=== PATIENT | male | born 1955 | race Native Hawaiian/Other Pacific Islander ===

== ENCOUNTER 2019-10-12 11:32 | Inpatient (IN) | payer SELFPAY ==
--- NOTE | 2019-10-12 12:08 | Emergency Department Report ---
Blank Doc - Documentation Documentation: 63-year-old male that presents with chest pain and describes it as tightness. This initial assessment/diagnostic orders/clinical plan/treatment(s) is/are subject to change based on patient's health status, clinical progression and re- assessment by fellow clinical providers in the ED. Further treatment and workup at subsequent clinical providers discretion. Patient/guardians urged not to elope from the ED as their condition may be serious if not clinically assessed and managed. Initial orders include: 1- Patient sent to [facility] for further evaluation and treatment 2- labs 3- EKG 4- CXR
[2019-10-12] MEDS ORDERED: ASPIRIN 81 MG TAB CHEW PO ONE (12:47)
--- NOTE | 2019-10-12 12:47 | Emergency Department Report ---
ED Chest Pain HPI - General Chief Complaint: Chest Pain Stated Complaint: CHEST PAIN Time Seen by Provider: 10/12/19 12:07 Source: patient Mode of arrival: Ambulatory Limitations: No Limitations - History of Present Illness Initial Comments: Patient is 63 years old male with history of hypertension and diabetes. Patient presented to the ER complaining of left sided chest pain, tightness with radiation to the left arm, neck and jaw. She stated that pain started last night continue for a few minutes and it went away. He stated that pain occurred today also for a few minutes and resolved. Patient currently does not have any chest pain and he is complaining of mild shortness of breath. Patient denied any history of cardiac problem before. No fever, chills or cough. MD Complaint: chest pain -: Last night, This morning Onset: during rest Pain Location: left chest Pain Radiation: neck, jaw/teeth Severity: moderate Severity scale (0 -10): 0 Quality: tightness Consistency: intermittent, now resolved - Related Data Allergies Allergy/AdvReac Type Severity Reaction Status Date / Time No Known Allergies Allergy Unverified 10/12/19 11:43 Heart Score - HEART Score History: Moderately suspicious EKG: Non-specific Age: 45-65 Risk factors: > 3 risk factors or hx of atherosclerotic disease Troponin: < normal limit HEART Score: 5 - Critical Actions Critical Actions: 4-6 pts:12-16.6% risk of adverse cardiac event. Should be admitted ED Review of Systems ROS: Stated complaint: CHEST PAIN Other details as noted in HPI Comment: All other systems reviewed and negative Constitutional: denies: chills, fever Respiratory: shortness of breath. denies: cough, orthopnea, SOB with exertion, SOB at rest, wheezing Cardiovascular: chest pain. denies: palpitations, dyspnea on exertion Gastrointestinal: denies: abdominal pain, nausea, vomiting Musculoskeletal: denies: back pain Neurological: denies: headache, weakness, numbness, paresthesias, confusion, abnormal gait ED Past Medical Hx - Past Medical History Previous Medical History?: Yes Hx Hypertension: Yes Hx Dementia: Yes - Surgical History Past Surgical History?: No - Social History Smoking Status: Never Smoker Substance Use Type: None ED Physical Exam - General Limitations: No Limitations General appearance: alert, in no apparent distress - Head Head exam: Present: atraumatic, normocephalic, normal inspection - Eye Eye exam: Present: normal appearance - ENT ENT exam: Present: normal exam, normal orophraynx, mucous membranes moist - Neck Neck exam: Present: normal inspection, full ROM. Absent: tenderness, meningismus, lymphadenopathy, thyromegaly - Respiratory Respiratory exam: Present: normal lung sounds bilaterally - Cardiovascular Cardiovascular Exam: Present: regular rate, normal rhythm, normal heart sounds - GI/Abdominal GI/Abdominal exam: Present: soft, normal bowel sounds. Absent: distended, tenderness, guarding, rebound, rigid, organomegaly, mass, bruit, pulsatile mass, hernia - Extremities Exam Extremities exam: Present: normal inspection, full ROM, normal capillary refill. Absent: tenderness, pedal edema, joint swelling, calf tenderness - Back Exam Back exam: Present: normal inspection, full ROM. Absent: CVA tenderness (R), CVA tenderness (L), muscle spasm, paraspinal tenderness, vertebral tenderness - Neurological Exam Neurological exam: Present: alert, oriented X3, CN II-XII intact, normal gait, reflexes normal. Absent: motor sensory deficit - Psychiatric Psychiatric exam: Present: normal mood - Skin Skin exam: Present: warm, intact, normal color ED Course Vital Signs 10/12/19 12:07 Temperature 98.3 F Pulse Rate 87 Respiratory 20 Rate Blood Pressure 138/90 O2 Sat by Pulse 96 Oximetry ED Medical Decision Making - Lab Data Result diagrams: 10/12/19 12:45 10/12/19 12:45 - EKG Data -: EKG Interpreted by De EKG shows normal: sinus rhythm Rate: normal - EKG Data Interpretation: no acute changes - Radiology Data Radiology results: report reviewed - Medical Decision Making Patient is 63 years old male with history of hypertension and diabetes. Patient presented to the ER complaining of left sided chest pain, tightness with radiation to the left arm, neck and jaw. She stated that pain started last night continue for a few minutes and it went away. He stated that pain occurred today also for a few minutes and resolved. Patient currently does not have any chest pain and he is complaining of mild shortness of breath. Patient denied any history of cardiac problem before. No fever, chills or cough. EKG showed no ST elevation or depression. Labs reviewed and showed elevated troponin of 0.15. D-dimer is unremarkable. Blood glucose is 408. Patient received aspirin, 5 units of regular insulin. Patient presentation is consistent with NON-STEMI. I discussed the patient with Dr. Meza who agreed to admit the patient to medical service for further management. Critical Care Time: Yes Critical care time in (mins) excluding proc time.: 30 Critical care attestation.: If time is entered above; I have spent that time in minutes in the direct care of this critically ill patient, excluding procedure time. ED Disposition Clinical Impression: Non-STEMI (non-ST elevated myocardial infarction), Chest pain Disposition: 09 OP ADMIT IP TO THIS HOSP Is pt being admited?: Yes Condition: Stable Instructions: Chest Pain (ED)
[2019-10-12 13:08] LABS: Basophils % (Auto) 0.9 % (0.0-1.8); Eosinophils # (Auto) 0.1 K/mm3 (0.0-0.4); Eosinophils % (Auto) 1.1 % (0.0-4.3); Hematocrit 49.1 % (35.5-45.6); Hemoglobin 17.2 gm/dl (11.8-15.2); Lymphocytes # (Auto) 1.4 K/mm3 (1.2-5.4); Mean Corpuscular HGB Conc 35 % (32-34); Mean Corpuscular Volume 87 fl (84-94); Monocytes # (Auto) 0.3 K/mm3 (0.0-0.8); Platelet Count 225 K/mm3 (140-440); Red Blood Count 5.63 M/mm3 (3.65-5.03); Red Cell Distribution Width 13.6 % (13.2-15.2)
[2019-10-12 13:18] LABS: INR 0.92 (0.87-1.13)
[2019-10-12 13:20] LABS: Partial Thromboplastin Time 27.7 Sec. (24.2-36.6)
--- NOTE | 2019-10-12 13:22 | XRay Report ---
CHEST 1 VIEW INDICATION: Chest Pain. COMPARISON: None. FINDINGS: Support devices: None. Heart: Within normal limits. Pulmonary vascular: Normal. Lungs/Pleura: No acute air space or interstitial disease. Additional findings: Aortic tortuosity and calcification. IMPRESSION: 1. No acute findings. 2. Atherosclerotic/hypertensive changes in aorta. Signer Name: Jose L Pepe MD Signed: 10/12/2019 1:18 PM Workstation Name: [id number]
[2019-10-12 13:37] LABS: Alanine Aminotransferase 16 units/L (7-56); Albumin 4.3 g/dL (3.9-5); BUN/Creatinine Ratio 21; Blood Urea Nitrogen 15 mg/dL (9-20); Calcium 9.7 mg/dL (8.4-10.2); Hemolysis Index 20
[2019-10-12] MEDS ORDERED: INSULIN REGULAR, HUMAN 100 UNITS/1 ML IV ONE (13:47)
[2019-10-12] MEDS ORDERED: HEPARIN 10,000 UNITS/10 ML VIAL IV ONE ×2 (13:52→14:17)
[2019-10-12 14:05] LABS: Chol/HDL Ratio 5.07 %; HDL Cholesterol 27 mg/dL (40-59); LDL Cholesterol,Direct TNR mg/dL (50-130)
[2019-10-12 14:47] LABS: Bilirubin,Urine NEG (Negative); Blood,Urine NEG (Negative); Color,Urine Straw (Yellow); Protein,Urine <15 mg/dL mg/dL (Negative); Urobilinogen,Urine < 2.0 mg/dL (<2.0); WBC,Urine < 1.0 /HPF (0.0-6.0)
[2019-10-12] MEDS ORDERED: HEPARIN/ 0.45% NACL DRIP 25,000 UNIT/500 ML BAG IV SCH (15:00)
[2019-10-12] MEDS ORDERED: ONDANSETRON 4 MG/2 ML INJ IV PRN (15:32)
[2019-10-12] MEDS ORDERED: ACETAMINOPHEN 325 MG TAB PO PRN (15:32)
--- NOTE | 2019-10-12 15:32 | History and Physical Report ---
History of Present Illness Date of examination: 10/12/19 Date of admission: 10/12/19 13:53 Chief complaint: cp History of present illness: 63-year-old male with past medical history of hypertension and diabetes mellitus type 2 who presents through the emergency department with complaints of left-sided chest, left arm, neck and jaw pain. Patient reports 2 episodes of the pain occurring both times while he was sleeping, awakening him from sleep. Patient states that the first episode lasted for approximately 5 minutes 1 week ago. The second episode occurred last night lasting for approximately 15 minutes. Patient denied any associated symptoms nausea, vomiting, diaphoresis or shortness of breath. Patient denies orthopnea or PND. No fever chills. No cough cold-like symptoms. Patient denies any ischemic evaluation of the heart in the past. Patient is [place]ese-speaking and son is at the bedside who has translated the interview. Past History Past Medical History: diabetes, hypertension, hyperlipidemia Past Surgical History: No surgical history Social history: no significant social history Family history: no significant family history Medications and Allergies Allergies Allergy/AdvReac Type Severity Reaction Status Date / Time No Known Allergies Allergy Unverified 10/12/19 11:43 Home Medications Medication Instructions Recorded Confirmed Last Taken Type AtorvaSTATin [Lipitor] 40 mg PO QHS 10/12/19 10/12/19 Unknown History Metformin HCl [metFORMIN] 1,000 mg PO BID 10/12/19 10/12/19 Unknown History glipiZIDE [Glucotrol] 5 mg PO QDAY 10/12/19 10/12/19 Unknown History lisinopriL [Zestril] 20 mg PO QDAY 10/12/19 10/12/19 Unknown History Active Meds: Active Medications Heparin Sodium/Sodium Chloride (Heparin/ 0.45% Nacl-25,000 Unit/500 Ml) 25,000 unit in 500 mls @ 20 mls/hr IV TITRATE MARQUISE; Protocol Last Admin: 10/12/19 14:30 Dose: 1,000 units/hr, 20 mls/hr Documented by: Review of Systems All systems: negative Exam - Constitutional Vitals: Temp Pulse Resp BP Pulse Ox 98.3 F 86 10 L 144/89 96 10/12/19 12:07 10/12/19 14:31 10/12/19 14:31 10/12/19 14:31 10/12/19 14:31 General appearance: Present: no acute distress, well-nourished - EENT Eyes: Present: PERRL ENT: hearing intact, clear oral mucosa - Neck Neck: Present: supple, normal ROM - Respiratory Respiratory effort: normal Respiratory: bilateral: CTA - Cardiovascular Heart Sounds: Present: S1 & S2. Absent: rub, click - Extremities Extremities: pulses symmetrical, No edema Peripheral Pulses: within normal limits - Abdominal General gastrointestinal: Present: soft, non-tender, non-distended, normal bowel sounds Male genitourinary: Present: normal - Integumentary Integumentary: Present: clear, warm, dry - Musculoskeletal Musculoskeletal: gait normal, strength equal bilaterally - Psychiatric Psychiatric: appropriate mood/affect, intact judgment & insight - Neurologic Neurologic: CNII-XII intact, moves all extremities Results - Labs CBC & Chem 7: 10/12/19 12:45 10/12/19 12:45 Labs: Laboratory Last Values WBC 5.0 K/mm3 (4.5-11.0) 10/12/19 12:45 RBC 5.63 M/mm3 (3.65-5.03) H 10/12/19 12:45 Hgb 17.2 gm/dl (11.8-15.2) H 10/12/19 12:45 Hct 49.1 % (35.5-45.6) H 10/12/19 12:45 MCV 87 fl (84-94) 10/12/19 12:45 MCH 31 pg (28-32) 10/12/19 12:45 MCHC 35 % (32-34) H 10/12/19 12:45 RDW 13.6 % (13.2-15.2) 10/12/19 12:45 Plt Count 225 K/mm3 (140-440) 10/12/19 12:45 Lymph % (Auto) 28.0 % (13.4-35.0) 10/12/19 12:45 [place] % (Auto) 7.0 % (0.0-7.3) 10/12/19 12:45 Eos % (Auto) 1.1 % (0.0-4.3) 10/12/19 12:45 Baso % (Auto) 0.9 % (0.0-1.8) 10/12/19 12:45 Lymph # 1.4 K/mm3 (1.2-5.4) 10/12/19 12:45 [place] # 0.3 K/mm3 (0.0-0.8) 10/12/19 12:45 Eos # 0.1 K/mm3 (0.0-0.4) 10/12/19 12:45 Baso # 0.0 K/mm3 (0.0-0.1) 10/12/19 12:45 Seg Neutrophils % 63.0 % (40.0-70.0) 10/12/19 12:45 Seg Neutrophils # 3.2 K/mm3 (1.8-7.7) 10/12/19 12:45 PT 12.4 Sec. (12.2-14.9) 10/12/19 12:45 INR 0.92 (0.87-1.13) 10/12/19 12:45 APTT 27.7 Sec. (24.2-36.6) 10/12/19 12:45 D-Dimer 187.18 ng/mlDDU (0-234) 10/12/19 12:45 Sodium 136 mmol/L (137-145) L 10/12/19 12:45 Potassium 3.9 mmol/L (3.6-5.0) 10/12/19 12:45 Chloride 96.3 mmol/L (98-107) L 10/12/19 12:45 Carbon Dioxide 23 mmol/L (22-30) 10/12/19 12:45 Anion Gap 21 mmol/L 10/12/19 12:45 BUN 15 mg/dL (9-20) 10/12/19 12:45 Creatinine 0.7 mg/dL (0.8-1.5) L 10/12/19 12:45 Estimated GFR > 60 ml/min 10/12/19 12:45 BUN/Creatinine Ratio 21 % 10/12/19 12:45 Glucose 403 mg/dL (75-100) H 10/12/19 12:45 Calcium 9.7 mg/dL (8.4-10.2) 10/12/19 12:45 Total Bilirubin 0.50 mg/dL (0.1-1.2) 10/12/19 12:45 AST 19 units/L (5-40) 10/12/19 12:45 ALT 16 units/L (7-56) 10/12/19 12:45 Alkaline Phosphatase 129 units/L (35-129) 10/12/19 12:45 Troponin T 0.157 ng/mL (0.00-0.029) H* 10/12/19 12:45 NT-Pro-B Natriuret Pep 75.88 pg/mL (0-900) 10/12/19 12:45 Total Protein 7.9 g/dL (6.3-8.2) 10/12/19 12:45 Albumin 4.3 g/dL (3.9-5) 10/12/19 12:45 Albumin/Globulin Ratio 1.2 % 10/12/19 12:45 Triglycerides 480 mg/dL (2-149) H 10/12/19 12:45 Cholesterol 137 mg/dL (50-199) 10/12/19 12:45 LDL Cholesterol Direct TNR 10/12/19 12:45 HDL Cholesterol 27 mg/dL (40-59) L 10/12/19 12:45 Cholesterol/HDL Ratio 5.07 % 10/12/19 12:45 Urine Color Straw (Yellow) 10/12/19 14:21 Urine Turbidity Clear (Clear) 10/12/19 14:21 Urine pH 5.0 (5.0-7.0) 10/12/19 14:21 Ur Specific [place] 1.029 (1.003-1.030) 10/12/19 14:21 Urine Protein <15 mg/dl mg/dL (Negative) 10/12/19 14:21 Urine Glucose (UA) >=500 mg/dL (Negative) 10/12/19 14:21 Urine Ketones Tr mg/dL (Negative) 10/12/19 14:21 Urine Blood Neg (Negative) 10/12/19 14:21 Urine Nitrite Neg (Negative) 10/12/19 14:21 Urine Bilirubin Neg (Negative) 10/12/19 14:21 Urine Urobilinogen < 2.0 mg/dL (<2.0) 10/12/19 14:21 Ur Leukocyte Esterase Neg (Negative) 10/12/19 14:21 Urine WBC (Auto) < 1.0 /HPF (0.0-6.0) 10/12/19 14:21 Urine RBC (Auto) 1.0 /HPF (0.0-6.0) 10/12/19 14:21 Assessment and Plan Assessment and plan: Chest pain. Patient will be placed on chest pain pathway and we will follow cardiac isoenzymes, EKG. cardiology consultation pending. Diabetes mellitus type 2. Continue oral hypoglycemic medications, Accu-Cheks and sliding scale insulin. Hypertension. Resume antihypertensive medications. Hyperlipidemia. Continue statins.
[2019-10-12 16:28] LABS: Basophils % (Auto) 0.7 % (0.0-1.8); Eosinophils # (Auto) 0.1 K/mm3 (0.0-0.4); Eosinophils % (Auto) 1.3 % (0.0-4.3); Hemoglobin 16.5 gm/dl (11.8-15.2); Lymphocytes # (Auto) 1.6 K/mm3 (1.2-5.4); Lymphocytes % (Auto) 28.3 % (13.4-35.0); Mean Corpuscular HGB Conc 34 % (32-34); Mean Corpuscular Volume 88 fl (84-94); Monocytes # (Auto) 0.5 K/mm3 (0.0-0.8); Monocytes % (Auto) 8.2 % (0.0-7.3); Platelet Count 216 K/mm3 (140-440); Red Blood Count 5.45 M/mm3 (3.65-5.03); Red Cell Distribution Width 13.5 % (13.2-15.2)
[2019-10-12 16:41] LABS: BUN/Creatinine Ratio 27; Blood Urea Nitrogen 16 mg/dL (9-20); Calcium 9.6 mg/dL (8.4-10.2); Hemolysis Index 15
[2019-10-12] MEDS: INSULIN REGULAR, HUMAN 100 UNITS/1 ML SUB-Q SCH ×2 (18:02→21:17)
--- NOTE | 2019-10-12 18:27 | Event Note ---
Date: 10/12/19 Cardiology note dictated #1 possible N STEMI #2 hypertension #3 hyperlipidemia #4 diabetes uncontrolled. Patient has developed 2 episodes of chest pain during the day today currently he is asymptomatic. He is noted to have mild elevation of the troponins and he has an abnormal EKG. The best course will probably be obtaining a cardiac catheter ization for definitive evaluation and further management. This is explained to the patient and family. He is willing to proceed with the same. Thanking you Dr. DIEGO Louise
--- NOTE | 2019-10-13 03:23 | Consultation ---
HISTORY OF PRESENT ILLNESS: The patient is a 63-year-old gentleman who speaks only Upper Sorbian with some Turkish. With the help of family interpreting, I could not get some other historic details. The patient apparently got up around 3:00 this morning and at that time he has noticed anterior chest discomfort with some pain in his neck. This lasted for about 5-10 minutes. Subsequently, he had more pain later on in the day and hence he came to the Emergency Room. In the Emergency Room, he describes the pain as tightness with radiation to the left arm, to the neck and to the jaw. He denies previous myocardial infarction. He denies any exertional chest pain in the past. The second episode lasted somewhat longer for about 15 minutes. The patient currently has no significant chest pain and in the Emergency Room, he was started on a heparin drip because of elevation of the troponin. He has two sets of troponins and the first troponin was 0.107 and second one is noted to be 0.157. The patient is seen for cardiac evaluation and further management. The patient is known to have a longstanding history of hypertension, diabetes and hyperlipidemia. The patient does not smoke; however, he drinks about 4-5 drinks a day. No history of peptic ulcer disease or gallbladder disease. Bowel habits have been regular. No significant major surgeries in the past. REVIEW OF SYSTEMS: Rest of the review system is unremarkable. PHYSICAL EXAMINATION: GENERAL: Adult gentleman, well built, well nourished, in no acute distress, pleasant and cooperative. VITAL SIGNS: Blood pressure is 144/89, pulse 86, respirations 18. HEAD, EYES, EARS, NOSE AND THROAT: Unremarkable. NECK: Supple. No thyromegaly. Both carotids are palpable and equal. Neck veins are flat. CHEST: Symmetrical. LUNGS: Clear. CARDIOVASCULAR: S1 and S2 are heard well. No S3. No significant murmurs are noted. ABDOMEN: Soft, nontender. EXTREMITIES: No significant edema or calf tenderness. LABORATORY DATA: EKG; sinus rhythm, possible old inferior CO, possible old anteroseptal CO, but no acute abnormalities are noted. LABORATORY DATA: WBC 5.7, hemoglobin 16.5. PT and INR are normal. BUN 15, creatinine 0.7, potassium 3.9. Troponin 0.107 and 0.157. BNP normal. Triglycerides 480, blood sugar 403. IMPRESSION: 1. Chest pain suggestive of angina pectoris. 2. Possible non-ST elevation myocardial infarction. 3. Hypertension. 4. Diabetes. 5. Hyperlipidemia. PLAN: This 63-year-old gentleman is seen for cardiac evaluation. At present, he is chest pain free and appears to be comfortable. In view of the elevated enzymes and the chest pain suggestive of angina pectoris and an abnormal EKG with possible old inferior and anteroseptal MIs, I feel that the best course would be to proceed with cardiac catheterization for definite evaluation. This is explained to the patient. We will continue monitoring him closely. Thank you for allowing me to participate in the care of this gentleman. JOB# [id number] KEMI/GLENNY
[2019-10-13 04:12] LABS: Basophils % (Auto) 0.8 % (0.0-1.8); Eosinophils # (Auto) 0.1 K/mm3 (0.0-0.4); Eosinophils % (Auto) 1.6 % (0.0-4.3); Lymphocytes # (Auto) 1.7 K/mm3 (1.2-5.4); Lymphocytes % (Auto) 31.5 % (13.4-35.0); Mean Corpuscular HGB Conc 35 % (32-34); Mean Corpuscular Volume 88 fl (84-94); Monocytes # (Auto) 0.4 K/mm3 (0.0-0.8); Monocytes % (Auto) 7.8 % (0.0-7.3); Platelet Count 194 K/mm3 (140-440); Red Blood Count 5.22 M/mm3 (3.65-5.03); Red Cell Distribution Width 13.8 % (13.2-15.2)
[2019-10-13 04:22] LABS: INR 1.01 (0.87-1.13)
[2019-10-13 04:30] LABS: BUN/Creatinine Ratio 29; Blood Urea Nitrogen 20 mg/dL (9-20); Hemolysis Index 15; Partial Thromboplastin Time 68.3 Sec. (24.2-36.6)
[2019-10-13] MEDS: INSULIN REGULAR, HUMAN 100 UNITS/1 ML SUB-Q SCH ×2 (08:17→13:06)
[2019-10-13] MEDS ORDERED: ASPIRIN EC 325 MG TAB PO ONE (09:29)
[2019-10-13] MEDS ORDERED: SODIUM CHLORIDE 0.9% 500 ML 500 ML ONE (09:32)
[2019-10-13] MEDS: SODIUM CHLORIDE 0.9% 500 ML 500 ML IV SCH ×3 (09:45→10:44)
[2019-10-13] MEDS ORDERED: ENOXAPARIN 40 MG/0.4 ML INJ SUB-Q SCH (10:00)
[2019-10-13] MEDS ORDERED: MIDAZOLAM 2 MG/2 ML INJ ONE (10:09)
[2019-10-13] MEDS ORDERED: HEPARIN 10,000 UNITS/10 ML VIAL ONE (10:09)
[2019-10-13] MEDS ORDERED: VERAPAMIL 5 MG/2 ML INJ ONE (10:10)
[2019-10-13] MEDS ORDERED: fentaNYL 100 MCG/2 ML INJ ONE (10:10)
[2019-10-13] MEDS ORDERED: LIDOCAINE (2%) 20 MG/1 ML VIAL 20 ML MDV INFILTRATI ONE (10:10)
[2019-10-13] MEDS: HEPARIN/NS 5000 UNIT/500ML 1,000 ML IR ONE ×2 (10:30→10:44)
[2019-10-13] MEDS: NITROGLYCERIN SYRINGE 3 ML ONE ×2 (10:43→10:44)
--- NOTE | 2019-10-13 11:22 | Cardiac Catherization Report ---
REFERRING PHYSICIAN: Ryan Meza MD INDICATION FOR PROCEDURE: The patient is a pleasant 63-year-old gentleman who presents with chest pain, abnormal troponins, finding of non-STEMI, referred for left heart catheterization. Risks, benefits, and alternatives discussed prior to obtaining informed consent. His son is at bedside and was helpful in the conversation given language barrier. PROCEDURE IN DETAIL: The patient was brought to catheterization lab in a postabsorptive state, prepped and draped in sterile fashion. John's test in right hand was normal. A 2 mL of 2% lidocaine used to anesthetize the right wrist. A standard 6-Guyanese hydrophilic sheath used to cannulate the right radial artery via modified Seldinger technique. All exchanges performed to exchange a J-tip guidewire. JL3.5 catheter was used to engage the left main. No dampening or ventricularization. Cineangiography performed in multiple projections. JR4 catheter used to cross the aortic valve under fluoroscopic guidance. Left ventriculography performed in 30 STOUT and 30 [place] projections via hand injection and catheter flushed. Manual pullback performed with continuous pressure monitoring. Catheter used to engage the right coronary. No dampening or ventricularization. Cineangiography performed in all projections. Due to elevated blood pressure, unremarkable coronaries and recurrent chest pain, Pigtail catheter used for root aortography in the EG[place]IAN projection with power injection. Next, catheter removed from the body of wire, sheath removed. Manual pressure used to achieve hemostasis. DATA: Aortic pressure is 120/70, LV pressure is 120, LVP of 15 mmHg. Left ventriculography revealed normal systolic performance with estimated ejection fraction of 55-60%. No evidence of aortic stenosis. CORONARY ANATOMY: Right dominant system. Left main without significant disease, bifurcates left anterior descending and left circumflex. Left circumflex, moderate sized vessel, courses AV groove. No significant disease. LAD is a moderate sized vessel, courses anterior intraventricular groove, wraps around the apex, tortuous, BIANKA 2 flow throughout the coronary tree, but no significant disease noted in the LAD or diagonal system. Right coronary is a moderate sized vessel, courses AV groove, distally bifurcates in the posterior and posterolateral branches. No significant disease identified. Root aortography reveals normal contour, no evidence of aortic dissection, penetrating aortic ulcer or aortic insufficiency. I directly supervised the administration of moderate sedation from 10:35 to 11:00 a.m. with fentanyl and Versed. CONCLUSIONS: 1. No angiographic evidence of significant epicardial coronary disease in this right dominant system. 2. BIANKA 3 flow throughout the left system, may be consistent with endothelial dysfunction or microvascular dysfunction. 3. Normal left ventricular systolic performance, estimated ejection fraction of 55-60%. 4. No evidence of aortic stenosis. 5. Normal LVEDP. 6. Normal sinus rhythm throughout. At this point, the patient is clinically stable, chest pain free. Recommend risk factor modification, aspirin, statin therapy. Optimize medical management, risk factor modification. Results of procedure explained at length to the patient and family. All questions and concerns were addressed. JOB# [id number] ALDO/GLENNY
--- NOTE | 2019-10-13 13:32 | Progress Note ---
Assessment and Plan S/p [facility] this AM which showed no angiographically significant coronary disease, BIANKA 3 flow throughout the left system, may be c/w endothelial dysfunction or microvascular dysfunction, EF 55-60%. Echo reviewed - EF 45-50%, impaired relaxation. Cont ASA 81, lipitor, lopressor, lisinopril. Currently stable cardiac status. Pt may discharge following completion of post- cath order set. Recommend pt follow up in our office with Dr. DIEGO Louise within 1- 2 weeks ([phone]). The patient has been seen in conjunction with Dr. Aranza Louise who agrees with the assessment and plan of care. - Patient Problems (1) Chest pain Current Visit: Yes Status: Resolved (2) Non-STEMI (non-ST elevated myocardial infarction) Current Visit: Yes Status: Acute (3) HTN (hypertension) Current Visit: Yes Status: Chronic (4) Hyperlipidemia Current Visit: Yes Status: Chronic (5) Diabetes mellitus with hyperglycemia Current Visit: Yes Status: Chronic Subjective Date of service: 10/13/19 Principal diagnosis: cp; elevated trop Interval history: pt for [facility] Objective Last Vital Signs Temp 98.2 F 10/13/19 07:45 Pulse 90 10/13/19 13:04 Resp 18 10/13/19 13:04 BP 132/92 10/13/19 13:04 Pulse Ox 96 10/13/19 13:04 - Physical Examination General: No Apparent Distress HEENT: Positive: PERRL, Normocephaly, Mucus Membranes Moist Neck: Positive: neck supple, trachea midline Cardiac: Positive: Reg Rate and Rhythm, S1/S2 Lungs: Positive: Decreased Breath Sounds Neuro: Positive: Grossly Intact Abdomen: Negative: Tender Skin: Negative: Rash Musculoskeletal: No Pain Extremities: Absent: edema - Labs and Meds Cardiac Enzymes 10/12/19 Range/Units 12:45 AST 19 (5-40) units/L Coagulation 10/13/19 10/13/19 Range/Units 03:34 03:34 PT 13.4 (12.2-14.9) Sec. INR 1.01 (0.87-1.13) APTT 68.3 H* (24.2-36.6) Sec. Lipids 10/12/19 Range/Units 12:45 Triglycerides 480 H (2-149) mg/dL Cholesterol 137 (50-199) mg/dL HDL Cholesterol 27 L (40-59) mg/dL Cholesterol/HDL Ratio 5.07 % CBC 10/12/19 10/13/19 Range/Units 16:04 03:34 WBC 5.7 5.4 (4.5-11.0) K/mm3 RBC 5.45 H 5.22 H (3.65-5.03) M/mm3 Hgb 16.5 H 16.0 H (11.8-15.2) gm/dl Hct 48.0 H 46.0 H (35.5-45.6) % Plt Count 216 194 (140-440) K/mm3 Lymph # 1.6 1.7 (1.2-5.4) K/mm3 [place] # 0.5 0.4 (0.0-0.8) K/mm3 Eos # 0.1 0.1 (0.0-0.4) K/mm3 Baso # 0.0 0.0 (0.0-0.1) K/mm3 Comprehensive Metabolic Panel 10/12/19 10/12/19 10/13/19 Range/Units 12:45 16:04 03:34 Sodium 136 L 136 L 137 (137-145) mmol/L Potassium 3.9 3.7 4.0 (3.6-5.0) mmol/L Chloride 96.3 L 99.5 99.8 (98-107) mmol/L Carbon Dioxide 23 23 23 (22-30) mmol/L BUN 15 16 20 (9-20) mg/dL Creatinine 0.7 L 0.6 L 0.7 L (0.8-1.5) mg/dL Glucose 403 H 313 H 336 H (75-100) mg/dL Calcium 9.7 9.6 9.0 (8.4-10.2) mg/dL AST 19 (5-40) units/L ALT 16 (7-56) units/L Alkaline Phosphatase 129 (35-129) units/L Total Protein 7.9 (6.3-8.2) g/dL Albumin 4.3 (3.9-5) g/dL - Imaging and Cardiology EKG: report reviewed, image reviewed Echo: report reviewed Cardiac cath: report reviewed - Telemetry EKG Rhythm: Sinus Rhythm - EKG Sinus rhythms and dysrhythmias: sinus rhythm Myocardial infarction: inferior [place] (old age inde
--- NOTE | 2019-10-13 14:08 | Discharge Summary ---
Providers - Providers Date of Admission: 10/12/19 13:53 Date of discharge: 10/13/19 Attending physician: FRIDA JOSHI 10/12/19 Consult to Cardiac Rehabilitation [CONS] Routine Reason For Exam: Phase I 10/12/19 15:32 Consult to Physician [CONS] Routine Comment: Consulting Provider: SG LOUISE Physician Instructions: Reason For Exam: cp Primary care physician: ORGAN TUNER Hospitalization Condition: Stable Disposition: DC-01 TO HOME OR SELFCARE Exam - Constitutional Vitals: Temp Pulse Resp BP Pulse Ox 98.2 F 90 18 132/92 96 10/13/19 07:45 10/13/19 13:04 10/13/19 13:35 10/13/19 13:04 10/13/19 13:04 Plan Activity: advance as tolerated Diet: low fat, low cholesterol, low salt, diabetic Plan of Treatment: 1.Follow up with PCP in 1 week. 2.Follow up with Dr. DIEGO Louise in 1-2 weeks Follow up with: PRIMARY CAREMD [Primary Care Provider] - 7 Days
[2019-10-13 15:01] VITALS: BP 112/76
[2019-10-13] MEDS ORDERED: METOPROLOL TARTRATE 25 MG TAB PO SCH (22:00)
[2019-10-14] MEDS ORDERED: LISINOPRIL 20 MG TAB PO SCH (10:00)
[2019-10-14] MEDS ORDERED: ASPIRIN 81 MG TAB CHEW PO SCH (10:00)
== END 2019-10-13 16:30 | disposition home or self-care (01) | DRG 282 ==
LOC: ED 11:32 → 4A 13:53
PROVIDERS: ADMIT Hospitalist; ATTEND Internal Medicine
PROC: 4A023N7 Measurement of Cardiac Sampling and Pressure, Left Heart, Percutaneous Approach (ICD-10-PCS; principal; 2019-10-13)
PROC: B2111ZZ Fluoroscopy of Multiple Coronary Arteries using Low Osmolar Contrast (ICD-10-PCS; 2019-10-13)
PROC: B2151ZZ Fluoroscopy of Left Heart using Low Osmolar Contrast (ICD-10-PCS; 2019-10-13)
DX: I21.4 Non-ST elevation (NSTEMI) myocardial infarction (principal); E11.65 Type 2 diabetes mellitus with hyperglycemia; I10 Essential (primary) hypertension; F03.90 Unspecified dementia, unspecified severity, without behavioral disturbance, psychotic disturbance, mood disturbance, and anxiety; Z79.84 Long term (current) use of oral hypoglycemic drugs
CPT/HCPCS: 36415; 71045; 80048; 80053; 80061; 81001; 82962; 83880; 84484; 85025; 85379; 85520; 85610; 85730; 93005; 93010; 93306; 93458; G0378; C1894; J1644; J1815; J2250; J3010; J7040; Q9967